=== PATIENT | male | born 2000 | race Caucasian/White ===

== ENCOUNTER 2022-04-21 18:38 | Emergency (ER) | payer SELFPAY ==
[2022-04-21] MEDS ORDERED: AUGMENTIN 875-875 MG PO (20:20)
== END 2022-04-21 20:46 | disposition home or self-care (01) ==
LOC: ED 18:38
DX: S62.521B Displaced fracture of distal phalanx of right thumb, initial encounter for open fracture (principal); W23.0XXA Caught, crushed, jammed, or pinched between moving objects, initial encounter; Y93.89 Activity, other specified; Y92.89 Other specified places as the place of occurrence of the external cause; Y99.8 Other external cause status